=== PATIENT | female | born 1990 | race American Indian/Alaskan Native ===

== ENCOUNTER 2017-03-22 20:52 | Emergency (ER) | payer SELFPAY ==
[2017-03-22] MEDS ORDERED: TORADOL ONE (21:10)
[2017-03-22] MEDS ORDERED: ZOFRAN ONE (21:14)
[2017-03-22] MEDS ORDERED: TORADOL IV ONE (21:22)
[2017-03-22] MEDS ORDERED: ZOFRAN IV ONE (21:22)
[2017-03-22 22:48] LABS: Mean Corpuscular HGB Conc 30 % (30-34); Platelet Count 424 K/mm3 (140-440); Red Blood Count 5.01 M/mm3 (3.65-5.03); Red Cell Distribution Width 19.2 % (13.2-15.2)
[2017-03-22 22:50] LABS: Hemoglobin 9.2 gm/dl (10.1-14.3); Mean Corpuscular Hemoglobin 18 pg (28-32); Mean Corpuscular Volume 62 fl (79-97); White Blood Count 22.4 K/mm3 (4.5-11.0)
[2017-03-22 23:11] LABS: Alanine Aminotransferase 6 units/L (7-56); Albumin 4.4 g/dL (3.9-5); Alkaline Phosphatase 98 units/L (35-129); Anion Gap 23 mmol/L; BUN/Creatinine Ratio 9; Blood Urea Nitrogen 6 mg/dL (7-17); Calcium 9.2 mg/dL (8.4-10.2); Carbon Dioxide 20 mmol/L (22-30); Chloride 98.4 mmol/L (98-107); Glucose 75 mg/dL (65-100); Lipase 36 units/L (13-60); Potassium 3.9 mmol/L (3.6-5.0); Sodium 137 mmol/L (137-145); Total Protein 8.7 g/dL (6.3-8.2)
[2017-03-22 23:23] LABS: Basophils % (Manual) 0 % (0.0-1.8); Blastocytes % (Manual) 0 %; Eosinophils % (Manual) 0 % (0.0-4.3)
[2017-03-22 23:26] LABS: Anisocytosis 1+
[2017-03-22 23:27] LABS: Diff Status Complete; Hypochromasia 2+; Microcytosis 2+; Platelet Estimate Consistent w Auto
--- NOTE | 2017-03-22 23:45 | Cat Scan Report ---
FINAL REPORT PROCEDURE: CT ABDOMEN PELVIS WO CON TECHNIQUE: Computerized axial tomography of the abdomen and pelvis was performed without intravenous contrast. This study is performed without intravascular contrast material and its sensitivity for abdominal and pelvic pathology, including neoplasms, inflammation, abscess, free fluid, thrombosis, arterial dissection and infarction, is reduced compared with a contrast enhanced study. HISTORY: flank pain, rlq pain COMPARISON: No prior studies are available for comparison. FINDINGS: Visualized lower thorax: No significant abnormality. Liver: Normal size and attenuation. Spleen: Normal size and attenuation. Gallbladder and biliary system: Normal. Pancreas: Normal. Adrenals: Normal. Kidneys: There are tiny stones in the right kidney. There are no ureteral stones. There is no hydronephrosis.. GI tract: There is no bowel obstruction, colitis or enteritis. The appendix is normal.. Lymph nodes and mesentery: Normal. Vasculature: Normal. Bladder: Normal. Reproductive organs: Uterus is unremarkable. There is an ill-defined soft tissue density in the left adnexal region measuring approximately 6.4 x 4.1 centimeters. This could be unopacified small bowel. Hemorrhagic ovarian cyst or mass not excluded.. Peritoneum: There is moderate free pelvic fluid.. Musculoskeletal structures: No significant abnormality. Other: None. IMPRESSION: There are tiny stones in the right kidney. There are no ureteral stones. There is no hydronephrosis.. There is no bowel obstruction, colitis or enteritis. The appendix is normal.. Uterus is unremarkable. There is an ill-defined soft tissue density in the left adnexal region measuring approximately 6.4 x 4.1 centimeters. This could be unopacified small bowel. Hemorrhagic ovarian cyst or mass not excluded.. Pelvic ultrasound may be helpful. There is moderate free pelvic fluid.. There is no pneumoperitoneum. .
[2017-03-23 01:46] VITALS: BP 114/75
== END 2017-03-23 04:30 | disposition left against medical advice (07) ==
LOC: ED 20:52
DX: R10.9 Unspecified abdominal pain (principal); Z53.21 Procedure and treatment not carried out due to patient leaving prior to being seen by health care provider
CPT/HCPCS: 36415; 74176; 80053; 83690; 84703; 85007; 85025; J1885; J2405

== ENCOUNTER 2018-05-24 09:11 | Emergency (ER) | payer MEDICAID ==
[2018-05-24] MEDS ORDERED: DILAUDID ONE (09:44)
[2018-05-24] MEDS ORDERED: NACL 0.9% 1000 ML 1,000 ML ONE (09:44)
[2018-05-24] MEDS ORDERED: DILAUDID IV ONE ×2 (09:48→10:52)
[2018-05-24] MEDS ORDERED: NACL 0.9% 1000 ML 1,000 ML IV ONE (09:48)
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
[2018-05-24 10:11] LABS: Hematocrit 30.8 % (30.3-42.9); Hemoglobin 9.4 gm/dl (10.1-14.3); Mean Corpuscular HGB Conc 31 % (30-34); Platelet Count 458 K/mm3 (140-440); Red Blood Count 5.03 M/mm3 (3.65-5.03)
[2018-05-24 10:15] LABS: Mean Corpuscular Volume 61 fl (79-97); Red Cell Distribution Width 20.1 % (13.2-15.2)
[2018-05-24 10:23] LABS: Alanine Aminotransferase 7 units/L (7-56); Albumin 4.7 g/dL (3.9-5); BUN/Creatinine Ratio 9; Blood Urea Nitrogen 6 mg/dL (7-17); Calcium 9.6 mg/dL (8.4-10.2); Hemolysis Index 12
[2018-05-24 10:52] LABS: Total Cells Counted 100
[2018-05-24 10:56] LABS: Anisocytosis 2+; Poikilocytosis 2+; Target Cells 1+
[2018-05-24 10:57] LABS: Hypochromasia 2+; Ovalocytes Few; Tear Drop Cells 1+
[2018-05-24 10:58] LABS: Platelet Estimate Consistent w Auto
[2018-05-24] MEDS ORDERED: BOOSTRIX IM ONE (11:33)
[2018-05-24] MEDS ORDERED: THERMAZENE 50 GRAM TP ONE ×3 (12:59→13:30)
[2018-05-24 13:22] VITALS: BP 124/72
== END 2018-05-24 13:22 | disposition home or self-care (01) ==
LOC: ED 09:11
DX: T21.14XA Burn of first degree of lower back, initial encounter (principal); J45.909 Unspecified asthma, uncomplicated; F17.200 Nicotine dependence, unspecified, uncomplicated; F12.90 Cannabis use, unspecified, uncomplicated; Z88.0 Allergy status to penicillin; Z91.018 Allergy to other foods; X08.8XXA Exposure to other specified smoke, fire and flames, initial encounter; Y93.89 Activity, other specified; Y92.099 Unspecified place in other non-institutional residence as the place of occurrence of the external cause; Y99.8 Other external cause status
CPT/HCPCS: 16020; 36415; 80053; 85007; 85025; 90471; 90715; 96374; 96376; 99284; J1170; J7030; 96361

== ENCOUNTER 2020-06-25 09:58 | Emergency (ER) | payer MEDICAID ==
--- NOTE | 2020-06-25 10:10 | Event Note ---
ED Screening Note Date of service: 06/25/20 Time: 10:09 ED Screening Note: 29-year-old -[place] female presents to the emergency room complaining of bilateral leg pain 8 out of 10. Patient reports that she has a history of sickle cell disease. This initial assessment/diagnostic orders/clinical plan/treatment(s) is/are subject to change based on patients health status, clinical progression and re- assessment by fellow clinical providers in the ED. Further treatment and workup at subsequent clinical providers discretion. Patient/guardian urged not to elope from the ED as their condition may be serious if not clinically assessed and managed. Initial orders include:
[2020-06-25 10:29] LABS: Basophils % (Auto) 0.4 % (0.0-1.8); Eosinophils # (Auto) 0.2 K/mm3 (0.0-0.4); Hematocrit 34.9 % (30.3-42.9); Hemoglobin 10.7 gm/dl (10.1-14.3); Lymphocytes # (Auto) 1.5 K/mm3 (1.2-5.4); Lymphocytes % (Auto) 29.8 % (13.4-35.0); Mean Corpuscular HGB Conc 31 % (30-34); Mean Corpuscular Volume 70 fl (79-97); Monocytes # (Auto) 0.3 K/mm3 (0.0-0.8); Monocytes % (Auto) 5.2 % (0.0-7.3); Platelet Count 365 K/mm3 (140-440); Red Blood Count 4.96 M/mm3 (3.65-5.03); Red Cell Distribution Width 19.8 % (13.2-15.2)
[2020-06-25 10:54] LABS: Alanine Aminotransferase 8 units/L (7-56); Albumin 3.9 g/dL (3.9-5); Blood Urea Nitrogen 5 mg/dL (7-17); Calcium 8.8 mg/dL (8.4-10.2); Hemolysis Index 9
[2020-06-25 11:07] LABS: BUN/Creatinine Ratio 8
--- NOTE | 2020-06-25 13:25 | Emergency Department Report ---
ED General Adult HPI - General Chief complaint: Sickle Cell Crisis Stated complaint: SICKLE CELL Time Seen by Provider: 06/25/20 13:24 Source: patient Mode of arrival: Ambulatory Limitations: No Limitations - History of Present Illness Initial comments: 29-year-old female with initial medical screening note stating that she is having a sickle cell crisis with a history of sickle cell disease. However the patient has been to this facility several times over the last less than 10 years. She had a normal vaginal delivery in 2016 with no mention of sickle cell disease: Date of discharge: 05/20/15 Attending physician: MANISH RANGEL Primary care physician: MANISH RANGEL Hospitalization Reason for admission: active labor, rupture of membranes Delivery: Episiotomy: none Laceration: none Other procedures: none complications: none Discharge diagnosis: IUP at term delivered [place] baby: male Pertinent studies: H&H-11.2/34.7 Hospital course: unremarkable Condition at discharge: Good Disposition: DISCHARGED TO HOME OR SELFCARE She has also been here for several pain complaints to include rule out renal colic with a negative CT for hydronephrosis as well as she thinks. A sickle cell screen has been ordered. However, review of her prior CBC profiles were negative for sickle cell. He does have a chronic anemia. Patient states that she has bilateral pain involving both her legs which is diffuse. She states that it is an ache which is exacerbated by cold weather. S he states that she has had this recurrently. She tells me that she is seeing a registered associate in [place] but for a long time. She does have a history of chronic anemia related to heavy periods. She denies recent fever or chills. I had the lab perform a sickle cell screen and QC. There were definitively negative. I informed the patient that per our results she does not have sickle cell disease. She did not appear to be terribly surprised that this fact. She asked for something for pain before leaving the emergency department. - Related Data Previous Rx's Medication Instructions Recorded Last Taken Type Nitrofurantoin Macrocrysta(Nf) 50 mg PO QDAY #60 capsule 12/22/14 Unknown Rx [Macrodantin CAP] Pnv,Calcium 72/Iron/Folic Acid 1 each PO DAILY #30 tablet 12/22/14 05/19/15 Rx [ Plus Tablet] Potassium Chloride [K-Sunitha] 40 meq PO DAILY #30 ml 12/22/14 05/19/15 Rx Sulfamethoxazole/Trimethoprim 1 each PO BID #20 tablet 12/22/14 Unknown Rx [Bactrim DS TAB] Nitrofurantoin Macrocrysta(Nf) 50 mg PO DAILY #60 capsule 01/02/15 Unknown Rx [Macrodantin CAP] HYDROcodone/APAP 7.5-325 [[place] 1 each PO Q6HR PRN #12 tablet 05/24/18 Unknown Rx 7.5/325] Silver Sulfadiazine [Silvadene] 400 gm TP BID #1 cream..g. 05/24/18 Unknown Rx Naproxen [Naprosyn] 500 mg PO Q12H PRN #14 tablet 06/25/20 Unknown Rx Allergies Allergy/AdvReac Type Severity Reaction Status Date / Time coconut oil Allergy Rash Verified 02/09/16 03:51 Penicillins Allergy Swelling Verified 02/09/16 03:51 ED Review of Systems ROS: Stated complaint: SICKLE CELL Other details as noted in HPI Constitutional: denies: chills, fever Eyes: denies: eye pain, eye discharge, vision change ENT: denies: ear pain, throat pain Respiratory: denies: cough, shortness of breath, wheezing Cardiovascular: denies: chest pain, palpitations Endocrine: no symptoms reported Gastrointestinal: denies: abdominal pain, nausea, diarrhea Genitourinary: abnormal menses (Chronically heavy periods). denies: urgency, dysuria Musculoskeletal: as per HPI, other (Diffuse nonlocalized leg pain). denies: back pain, joint swelling, arthralgia Skin: denies: rash, lesions Neurological: denies: headache, weakness, paresthesias Psychiatric: denies: anxiety, depression Hematological/Lymphatic: denies: easy bleeding, easy bruising ED Past Medical Hx - Past Medical History Previous Medical History?: Yes Hx Hypertension: No Hx Congestive Heart Failure: No Hx Diabetes: No Hx Deep Vein Thrombosis: No Hx Renal Disease: No Hx Sickle Cell Disease: Yes (Trait) Hx Seizures: No Hx Asthma: Yes (last attack 2013) Hx COPD: No Hx HIV: No - Surgical History Past Surgical History?: No - Social History Smoking Status: Current Every Day Smoker Substance Use Type: None - Medications Home Medications: Home Medications Medication Instructions Recorded Confirmed Last Taken Type Nitrofurantoin Macrocrysta(Nf) 50 mg PO QDAY #60 capsule 12/22/14 05/19/15 Unknown Rx [Macrodantin CAP] Pnv,Calcium 72/Iron/Folic Acid 1 each PO DAILY #30 tablet 12/22/14 05/19/15 05/19/15 Rx [ Plus Tablet] Potassium Chloride [K-Sunitha] 40 meq PO DAILY #30 ml 12/22/14 05/19/15 05/19/15 Rx Sulfamethoxazole/Trimethoprim 1 each PO BID #20 tablet 12/22/14 05/19/15 Unknown Rx [Bactrim DS TAB] Nitrofurantoin Macrocrysta(Nf) 50 mg PO DAILY #60 capsule 01/02/15 05/19/15 Unknown Rx [Macrodantin CAP] HYDROcodone/APAP 7.5-325 [[place] 1 each PO Q6HR PRN #12 tablet 05/24/18 Unknown Rx 7.5/325] Silver Sulfadiazine [Silvadene] 400 gm TP BID #1 cream..g. 05/24/18 Unknown Rx Naproxen [Naprosyn] 500 mg PO Q12H PRN #14 tablet 06/25/20 Unknown Rx ED Physical Exam - General Limitations: No Limitations General appearance: alert, in no apparent distress - Head Head exam: Present: atraumatic, normocephalic - Eye Eye exam: Present: normal appearance. Absent: scleral icterus - ENT ENT exam: Present: mucous membranes moist - Neck Neck exam: Present: normal inspection - Respiratory Respiratory exam: Present: normal lung sounds bilaterally. Absent: respiratory distress - Cardiovascular Cardiovascular Exam: Present: regular rate, normal rhythm. Absent: systolic murmur, diastolic murmur, rubs, gallop - GI/Abdominal GI/Abdominal exam: Present: soft, normal bowel sounds. Absent: distended, tenderness, guarding, rebound - Extremities Exam Extremities exam: Present: normal inspection, full ROM, tenderness (States it hurts all over, nonlocalizing tenderness), normal capillary refill, joint swelling. Absent: pedal edema, calf tenderness - Back Exam Back exam: Present: normal inspection - Neurological Exam Neurological exam: Present: alert, oriented X3, CN II-XII intact. Absent: motor sensory deficit - Psychiatric Psychiatric exam: Present: normal affect, normal mood - Skin Skin exam: Present: warm, dry, intact, normal color. Absent: rash ED Course Vital Signs 06/25/20 10:09 Temperature 98.3 F Pulse Rate 90 Respiratory 16 Rate Blood Pressure 173/95 [Left] O2 Sat by Pulse 100 Oximetry - Reevaluation(s) Reevaluation #1: I think we must conclude that the patient has drug-seeking behavior. Sickle cell screening is negative. She has been to this facility since 2013 without a history of sickle cell. She has no local registered associate. She does have a stable hemoglobin. She will be referred to the local primary care clinic. 06/25/20 14:25 ED Medical Decision Making - Lab Data Result diagrams: 06/25/20 10:16 06/25/20 10:16 Laboratory Results - last 24 hr 06/25/20 06/25/20 10:16 10:16 WBC 5.1 RBC 4.96 Hgb 10.7 Hct 34.9 MCV 70 L MCH 22 L MCHC 31 RDW 19.8 H Plt Count 365 Lymph % (Auto) 29.8 [place] % (Auto) 5.2 Eos % (Auto) 3.0 Baso % (Auto) 0.4 Lymph # (Auto) 1.5 [place] # (Auto) 0.3 Eos # (Auto) 0.2 Baso # (Auto) 0.0 Seg Neutrophils % 61.6 Seg Neutrophils # 3.1 Percent Retic 0.88 Sodium 136 L Potassium 3.9 Chloride 105.6 Carbon Dioxide 24 Anion Gap 10 BUN 5 L Creatinine 0.6 Estimated GFR > 60 BUN/Creatinine Ratio 8 Glucose 79 Calcium 8.8 Total Bilirubin 0.50 AST 14 ALT 8 Alkaline Phosphatase 109 Total Protein 7.9 Albumin 3.9 Albumin/Globulin Ratio 1.0 Laboratory Results - last 24 hr 06/25/20 06/25/20 10:16 10:16 WBC 5.1 RBC 4.96 Hgb 10.7 Hct 34.9 MCV 70 L MCH 22 L MCHC 31 RDW 19.8 H Plt Count 365 Lymph % (Auto) 29.8 [place] % (Auto) 5.2 Eos % (Auto) 3.0 Baso % (Auto) 0.4 Lymph # (Auto) 1.5 [place] # (Auto) 0.3 Eos # (Auto) 0.2 Baso # (Auto) 0.0 Seg Neutrophils % 61.6 Seg Neutrophils # 3.1 Percent Retic 0.88 Sodium 136 L Potassium 3.9 Chloride 105.6 Carbon Dioxide 24 Anion Gap 10 BUN 5 L Creatinine 0.6 Estimated GFR > 60 BUN/Creatinine Ratio 8 Glucose 79 Calcium 8.8 Total Bilirubin 0.50 AST 14 ALT 8 Alkaline Phosphatase 109 Total Protein 7.9 Albumin 3.9 Albumin/Globulin Ratio 1.0 Sickle screen was negative Critical care attestation.: If time is entered above; I have spent that time in minutes in the direct care of this critically ill patient, excluding procedure time. 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 I would recommend an iron rich diet and [id number] iron supplement. Rx as needed for leg pain. Prescriptions: Naproxen [Naprosyn] 500 mg PO Q12H PRN #14 tablet PRN Reason: Pain, Moderate (4-6) Referrals: [facility] [Other] - 3-5 Days [facility] [Provider Group] - 3-5 Days Time of Disposition: 14:30
[2020-06-25] MEDS ORDERED: NAPROXEN 375 MG TAB PO ONE (14:31)
[2020-06-25] MEDS ORDERED: traMADol 50 MG TAB PO ONE (14:39)
[2020-06-25 14:51] VITALS: BP 143/101
== END 2020-06-25 14:50 | disposition home or self-care (01) ==
LOC: ED 09:58
DX: D64.9 Anemia, unspecified (principal); M79.604 Pain in right leg; M79.605 Pain in left leg; Z76.5 Malingerer [conscious simulation]; J45.909 Unspecified asthma, uncomplicated; F17.200 Nicotine dependence, unspecified, uncomplicated; Z79.899 Other long term (current) drug therapy; Z88.0 Allergy status to penicillin; Z88.8 Allergy status to other drugs, medicaments and biological substances
CPT/HCPCS: 36415; 80053; 85025; 85045; 85660

== ENCOUNTER 2020-08-14 10:14 | Observation (INO) | payer MEDICAID ==
[2020-08-14] MEDS ORDERED: DEXTROSE 50% IN WATER (25GM) 50 ML SYRINGE IV ONE ×2 (10:46→10:49)
--- NOTE | 2020-08-14 11:11 | Emergency Department Report ---
ED General Adult HPI - General Chief complaint: Hypoglycemia Stated complaint: GEN WEAKNESS HYPERTENSIVE Time Seen by Provider: 08/14/20 10:47 Source: EMS Mode of arrival: Stretcher Limitations: No Limitations - History of Present Illness Initial comments: This is a 38-year-old female that arrived via EMS. She was found to have a blood sugar in the 40s in the field. She was given D10 infusion 125 cc. She arrives with a blood glucose in the mid 50s. Apparently she was feeling very weak and EMS was summoned. She tells me that yesterday she threw up perhaps 4 times. The first 3 times was the food that she ate, she states. There is no signs of GI bleeding. She has some persistent nausea but no diarrhea. She denies respiratory symptoms, cough, fevers, shortness of breath. She has had no change in her urine output or any symptoms. Other than the generalized weakness she has no specific complaint. This is a patient that I saw here in June 2019 with a factitious history of sickle cell disease: She has also been here for several pain complaints to include rule out renal colic with a negative CT for hydronephrosis as well as she thinks. A sickle cell screen has been ordered. However, review of her prior CBC profiles were negative for sickle cell. He does have a chronic anemia. Patient states that she has bilateral pain involving both her legs which is diffuse. She states that it is an ache which is exacerbated by cold weather. She states that she has had this recurrently. 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 She does have a history of chronic anemia related to heavy periods. She denies recent fever or chills. I had the lab perform a sickle cell screen and QC. There were definitively negative. I informed the patient that per our results she does not have sickle cell disease. She did not appear to be terribly surprised that this fact. She asked for something for pain before leaving the emergency department. Patient denies recent fever or exposure to people with Covid. Patient states that she has not seen a physician for quite some time. She states that her previously prescribed medications were Zoloft and trazodone. She has not been taking any such medicine for quite some time. She does have a history of hypertension as well but is noncompliant with medication. -: hour(s) Severity scale (0 -10): 0 Associated Symptoms: denies other symptoms, weakness - Related Data Previous Rx's Medication Instructions Recorded Last Taken Type Nitrofurantoin Macrocrysta(Nf) 50 mg PO QDAY #60 capsule 12/22/14 Unknown Rx [Macrodantin CAP] Pnv,Calcium 72/Iron/Folic Acid 1 each PO DAILY #30 tablet 12/22/14 05/19/15 Rx [ Plus Tablet] Potassium Chloride [K-Sunitha] 40 meq PO DAILY #30 ml 12/22/14 05/19/15 Rx Sulfamethoxazole/Trimethoprim 1 each PO BID #20 tablet 12/22/14 Unknown Rx [Bactrim DS TAB] Nitrofurantoin Macrocrysta(Nf) 50 mg PO DAILY #60 capsule 01/02/15 Unknown Rx [Macrodantin CAP] HYDROcodone/APAP 7.5-325 [[place] 1 each PO Q6HR PRN #12 tablet 05/24/18 Unknown Rx 7.5/325] Silver Sulfadiazine [Silvadene] 400 gm TP BID #1 cream..g. 05/24/18 Unknown Rx Naproxen [Naprosyn] 500 mg PO Q12H PRN #14 tablet 06/25/20 Unknown Rx Allergies Allergy/AdvReac Type Severity Reaction Status Date / Time coconut oil Allergy Rash Verified 02/09/16 03:51 Penicillins Allergy Swelling Verified 02/09/16 03:51 ED Review of Systems ROS: Stated complaint: GEN WEAKNESS HYPERTENSIVE Other details as noted in HPI Constitutional: weakness. denies: chills, fever Eyes: denies: eye pain, vision change ENT: denies: ear pain, throat pain Respiratory: denies: cough, shortness of breath Cardiovascular: denies: chest pain, palpitations Endocrine: no symptoms reported Gastrointestinal: nausea, vomiting. denies: abdominal pain, diarrhea Genitourinary: denies: urgency, dysuria, discharge Musculoskeletal: denies: back pain, arthralgia Skin: denies: rash, lesions Neurological: denies: headache, weakness, paresthesias Psychiatric: denies: anxiety, depression Hematological/Lymphatic: denies: easy bleeding, easy bruising ED Past Medical Hx - Past Medical History Previous Medical History?: Yes Hx Hypertension: Yes Hx Congestive Heart Failure: No Hx Diabetes: No Hx Deep Vein Thrombosis: No Hx Renal Disease: No Hx Sickle Cell Disease: (Trait) Hx Seizures: No Hx Asthma: Yes (last attack 2013) Hx COPD: No Hx HIV: No - Social History Smoking Status: Current Every Day Smoker Substance Use Type: None - Medications Home Medications: Home Medications Medication Instructions Recorded Confirmed Last Taken Type Nitrofurantoin Macrocrysta(Nf) 50 mg PO QDAY #60 capsule 12/22/14 05/19/15 Unknown Rx [Macrodantin CAP] Pnv,Calcium 72/Iron/Folic Acid 1 each PO DAILY #30 tablet 12/22/14 05/19/15 05/19/15 Rx [ Plus Tablet] Potassium Chloride [K-Sunitha] 40 meq PO DAILY #30 ml 12/22/14 05/19/15 05/19/15 Rx Sulfamethoxazole/Trimethoprim 1 each PO BID #20 tablet 12/22/14 05/19/15 Unknown Rx [Bactrim DS TAB] Nitrofurantoin Macrocrysta(Nf) 50 mg PO DAILY #60 capsule 01/02/15 05/19/15 Unknown Rx [Macrodantin CAP] HYDROcodone/APAP 7.5-325 [[place] 1 each PO Q6HR PRN #12 tablet 05/24/18 Unknown Rx 7.5/325] Silver Sulfadiazine [Silvadene] 400 gm TP BID #1 cream..g. 05/24/18 Unknown Rx Naproxen [Naprosyn] 500 mg PO Q12H PRN #14 tablet 06/25/20 Unknown Rx ED Physical Exam - General Limitations: No Limitations General appearance: alert, in no apparent distress, other (Very asthenic) - Head Head exam: Present: atraumatic, normocephalic - Eye Eye exam: Present: normal appearance, PERRL, EOMI - ENT ENT exam: Present: mucous membranes moist - Neck Neck exam: Present: normal inspection. Absent: tenderness, meningismus - Respiratory Respiratory exam: Present: normal lung sounds bilaterally. Absent: respiratory distress - Cardiovascular Cardiovascular Exam: Present: regular rate, normal rhythm. Absent: systolic murmur, diastolic murmur, rubs, gallop - GI/Abdominal GI/Abdominal exam: Present: soft, normal bowel sounds. Absent: distended, tenderness, guarding, rebound - Extremities Exam Extremities exam: Present: normal inspection - Back Exam Back exam: Present: normal inspection - Neurological Exam Neurological exam: Present: alert, oriented X3, CN II-XII intact. Absent: motor sensory deficit - Psychiatric Psychiatric exam: Present: normal mood, flat affect - Skin Skin exam: Present: warm, dry, intact, normal color. Absent: rash ED Course Vital Signs 08/14/20 08/14/20 08/14/20 10:42 10:43 12:30 Temperature 97.9 F Pulse Rate 84 95 H Respiratory 17 17 21 Rate Blood Pressure 147/104 152/102 [Right] O2 Sat by Pulse 100 100 100 Oximetry - Reevaluation(s) Reevaluation #1: Patient was given D10 in the field. Her first glucose here was 20. She ate and still had a relatively low glucose. She vomited x1. I placed her on D5 half- normal saline. With the persistent hypoglycemia and vomiting, I am going to refer to the hospitalist service. 08/14/20 12:33 Reevaluation #3: Discussed with Dr. Kinsey. He will admit. 08/14/20 13:06 ED Medical Decision Making - Lab Data Result diagrams: 08/14/20 11:16 08/14/20 11:16 Critical care attestation.: If time is entered above; I have spent that time in minutes in the direct care of this critically ill patient, excluding procedure time. ED Disposition Clinical Impression: Hypoglycemia, Hyponatremia, Uncontrolled hypertension, Polysubstance abuse, BMI 22.0-22.9, adult Vomiting Qualifiers: Vomiting type: unspecified Vomiting Intractability: intractable Nausea presence: with nausea Qualified Code(s): R11.2 - Nausea with vomiting, unspecified Anemia Qualifiers: Anemia type: unspecified type Qualified Code(s): D64.9 - Anemia, unspecified Disposition: OP ADMIT IP TO THIS HOSP Is pt being admited?: No Does the pt Need Aspirin: No Condition: Stable Instructions: Hypertension (ED) Referrals: PRIMARY CARE, [Primary Care Provider] - 3-5 Days Time of Disposition: 13:06
[2020-08-14] MEDS ORDERED: ONDANSETRON 4 MG ODT TAB PO ONE (11:12)
[2020-08-14 11:28] LABS: Benzodiazepines Screen,Urine Negative; Cannabinoid Screen,Urine Negative; Methadone Screen,Urine Negative; Opiate Screen,Urine Negative
[2020-08-14 11:36] LABS: Basophils # (Auto) 0.1 K/mm3 (0.0-0.1); Basophils % (Auto) 0.8 % (0.0-1.8); Eosinophils # (Auto) 0.1 K/mm3 (0.0-0.4); Eosinophils % (Auto) 1.1 % (0.0-4.3); Hematocrit 34.8 % (30.3-42.9); Hemoglobin 10.8 gm/dl (10.1-14.3); Lymphocytes # (Auto) 1.7 K/mm3 (1.2-5.4); Lymphocytes % (Auto) 25.2 % (13.4-35.0); Mean Corpuscular HGB Conc 31 % (30-34); Monocytes # (Auto) 0.5 K/mm3 (0.0-0.8); Monocytes % (Auto) 7.3 % (0.0-7.3); Platelet Count 394 K/mm3 (140-440); Red Blood Count 5.15 M/mm3 (3.65-5.03)
[2020-08-14 11:45] LABS: Amphetamine Screen,Urine PRESUMPTIVE POSITIVE; Cocaine Screen,Urine PRESUMPTIVE POSITIVE
[2020-08-14 11:47] LABS: Bacteria,Urine 1+ /HPF (Negative); Bilirubin,Urine NEG (Negative); Blood,Urine NEG (Negative); Color,Urine Straw (Yellow); Mucus,Urine FEW /HPF; Protein,Urine <15 mg/dL mg/dL (Negative); Urobilinogen,Urine < 2.0 mg/dL (<2.0); WBC,Urine < 1.0 /HPF (0.0-6.0)
[2020-08-14 11:48] LABS: Mean Corpuscular Volume 68 fl (79-97); Red Cell Distribution Width 20.4 % (13.2-15.2)
[2020-08-14 11:52] LABS: INR 1.01 (0.87-1.13)
[2020-08-14 11:53] LABS: Partial Thromboplastin Time 31.7 Sec. (24.2-36.6)
[2020-08-14 11:54] LABS: HCG Qualitative,Urine Negative (Negative)
[2020-08-14 11:59] LABS: Alanine Aminotransferase 9 units/L (7-56); Albumin 4.2 g/dL (3.9-5); Blood Urea Nitrogen 6 mg/dL (7-17); Calcium 9.3 mg/dL (8.4-10.2); Hemolysis Index 3
[2020-08-14 12:06] LABS: BUN/Creatinine Ratio 9
[2020-08-14 12:09] LABS: Free T4 (Free Thyroxine) 1.29 ng/dL (0.76-1.46)
[2020-08-14 12:10] LABS: Bilirubin,Direct < 0.2 mg/dL (0-0.2)
[2020-08-14] MEDS ORDERED: ONDANSETRON 4 MG/2 ML INJ IV ONE (12:18)
[2020-08-14] MEDS ORDERED: D5W/0.9% NACL 1,000 ML IV SCH (13:00)
[2020-08-14] MEDS ORDERED: D5W/0.45% NACL 1,000 ML IV SCH (13:00)
--- NOTE | 2020-08-14 13:13 | History and Physical Report ---
History of Present Illness Chief complaint: I feel sick History of present illness: 38 YO Female with HTN, Asthma, Nicotine Dependence, PSA, SCD Trait presents to ED for evaluation. Pt reports "I feel sick". Patient is lethargic the time of my evaluation and is unable to provide detailed history. Patient only provides minimal history. Additional history taken from EMS staff as well as ED staff. As per staff the patient reported "feeling sick". EMS was notified and upon arrival the patient was found to be in distress and subsequently transported to [facility] for further care and evaluation of the aforementioned symptoms. The patient was seen and evaluated in the emergency department. All lab and imaging studies reviewed. The patient was found to have hypoglycemia, metabolic encephalopathy. Patient placed in observation status and admitted to medical floor and initiated on D10 drip. No reports of fever, chills, chest pain, palpitation, productive cough, skin rash, recent ill contacts, or known exposure to COVID-19. No prior admission for review. All medication listed at time of admission has been reconciled. Past History Past Medical History: hypertension, other (See HPI) Past Surgical History: No surgical history, Other (Reviewed) Social history: single, smoking Family history: diabetes, hypertension Medications and Allergies Allergies Allergy/AdvReac Type Severity Reaction Status Date / Time coconut oil Allergy Rash Verified 02/09/16 03:51 Penicillins Allergy Swelling Verified 02/09/16 03:51 Home Medications Medication Instructions Recorded Confirmed Last Taken Type Nitrofurantoin Macrocrysta(Nf) 50 mg PO QDAY #60 capsule 12/22/14 05/19/15 Unknown Rx [Macrodantin CAP] Pnv,Calcium 72/Iron/Folic Acid 1 each PO DAILY #30 tablet 12/22/14 05/19/15 05/19/15 Rx [ Plus Tablet] Potassium Chloride [K-Sunitha] 40 meq PO DAILY #30 ml 12/22/14 05/19/15 05/19/15 Rx Sulfamethoxazole/Trimethoprim 1 each PO BID #20 tablet 12/22/14 05/19/15 Unknown Rx [Bactrim DS TAB] Nitrofurantoin Macrocrysta(Nf) 50 mg PO DAILY #60 capsule 01/02/15 05/19/15 Unknown Rx [Macrodantin CAP] HYDROcodone/APAP 7.5-325 [[place] 1 each PO Q6HR PRN #12 tablet 05/24/18 Unknown Rx 7.5/325] Silver Sulfadiazine [Silvadene] 400 gm TP BID #1 cream..g. 05/24/18 Unknown Rx Naproxen [Naprosyn] 500 mg PO Q12H PRN #14 tablet 06/25/20 Unknown Rx Active Meds: Active Medications Dextrose/Sodium Chloride (D5ns) 1,000 mls @ 150 mls/hr IV DIRECT SAIMA Review of Systems ROS unobtainable: due to mental status Exam - Constitutional Vitals: Temp Pulse Resp BP Pulse Ox 97.9 F 107 H 22 144/95 100 08/14/20 10:42 08/14/20 12:46 08/14/20 12:46 08/14/20 12:46 08/14/20 12:46 General appearance: Present: mild distress - EENT Eyes: Present: PERRL ENT: hearing intact, clear oral mucosa - Neck Neck: Present: supple, normal ROM - Respiratory Respiratory effort: normal Respiratory: bilateral: CTA - Cardiovascular Heart Sounds: Present: S1 & S2. Absent: rub, click - Extremities Extremities: pulses symmetrical, No edema Peripheral Pulses: within normal limits - Abdominal General gastrointestinal: Present: soft, non-tender, non-distended, normal bowel sounds Female genitourinary: Present: normal - Integumentary Integumentary: Present: clear, warm, dry - Musculoskeletal Musculoskeletal: gait normal, strength equal bilaterally - Psychiatric Psychiatric: appropriate mood/affect, intact judgment & insight - Neurologic Neurologic: CNII-XII intact, moves all extremities Results - Labs CBC & Chem 7: 08/14/20 11:16 08/14/20 11:16 Labs: Abnormal lab results 08/14/20 08/14/20 08/14/20 Range/Units 10:39 11:06 11:08 RBC (3.65-5.03) M/mm3 MCV (79-97) fl MCH (28-32) pg RDW (13.2-15.2) % Sodium (137-145) mmol/L BUN (7-17) mg/dL Glucose (65-100) mg/dL POC Glucose 55 L 63 L (70-105) mg/dL Total Creatine Kinase (30-135) units/L Total Protein (6.3-8.2) g/dL Ur Specific [place] 1.000 L (1.003-1.030) 08/14/20 08/14/20 Range/Units 11:16 11:16 RBC 5.15 H (3.65-5.03) M/mm3 MCV 68 L (79-97) fl MCH 21 L (28-32) pg RDW 20.4 H (13.2-15.2) % Sodium 135 L (137-145) mmol/L BUN 6 L (7-17) mg/dL Glucose 20 L* (65-100) mg/dL POC Glucose (70-105) mg/dL Total Creatine Kinase 155 H (30-135) units/L Total Protein 8.3 H (6.3-8.2) g/dL Ur Specific [place] (1.003-1.030) Assessment and Plan - Patient Problems (1) Hypoglycemia Current Visit: Yes Status: Acute Plan to address problem: Serial BMP, D10 drip, supportive care, BMP, (2) Polysubstance abuse Current Visit: Yes Status: Acute Plan to address problem: Supportive care, outpatient substance abuse follow-up counseling. (3) Metabolic encephalopathy Current Visit: Yes Status: Acute Plan to address problem: Neuro check, seizure precaution, aspiration precautions, fall precautions, supportive care. (4) DVT prophylaxis Current Visit: Yes Status: Acute Plan to address problem: SCDs bilateral lower extremities while in bed, patient is ambulatory.
[2020-08-14] MEDS ORDERED: ACETAMINOPHEN 325 MG TAB PO PRN (13:45)
[2020-08-14] MEDS ORDERED: ALBUTEROL 2.5 MG/3 ML NEBU IH PRN (13:45)
[2020-08-14] MEDS ORDERED: ONDANSETRON 4 MG/2 ML INJ IV PRN (13:45)
[2020-08-14 15:44] VITALS: BP 145/111
--- NOTE | 2020-08-15 14:43 | Electrocardiograph Report ---
[facility] Test Date: 2020-08-14 Test Time: 16:07:11 Pat Name: RICO MENEZES Department: Room: A473 1 Gender: F Orderly: SYLVESTER : 1990 Requested By: DAMASO LOGAN Order Number: [id number] Reading MD: Parker Mooney Measurements Intervals Lillian Rate: 89 P: 73 [place]: 117 QRS: 71 QRSD: 84 T: 12 QT: 379 QTc: 461 Interpretive Statements Sinus rhythm Probable left atrial enlargement No previous ECG available for comparison Electronically Signed On 08-15-2020 14:43:08 EDT by Parker Mooney
== END 2020-08-14 16:51 | disposition left against medical advice (07) ==
LOC: ED 10:14 → 4A 13:45
PROVIDERS: ADMIT Internal Medicine; ATTEND Internal Medicine
DX: G93.41 Metabolic encephalopathy (principal); E16.2 Hypoglycemia, unspecified; I10 Essential (primary) hypertension; F19.10 Other psychoactive substance abuse, uncomplicated; D64.9 Anemia, unspecified; J45.909 Unspecified asthma, uncomplicated; E87.1 Hypo-osmolality and hyponatremia; R11.2 Nausea with vomiting, unspecified; F17.200 Nicotine dependence, unspecified, uncomplicated; Z68.22 Body mass index [BMI] 22.0-22.9, adult; Z79.899 Other long term (current) drug therapy
CPT/HCPCS: 36415; 80048; 80076; 80307; 81001; 81025; 82140; 82550; 82553; 82962; 83735; 83880; 84439; 84443; 85025; 85610; 85730; 93005; 96361; 96374; 96375; 99284; G0378; J2405; J7042

== ENCOUNTER 2020-08-14 21:44 | Emergency (ER) | payer MEDICAID ==
[2020-08-15] MEDS ORDERED: ONDANSETRON 4 MG ODT TAB PO ONE (00:08)
--- NOTE | 2020-08-15 00:11 | Emergency Department Report ---
ED General Adult HPI - General Chief complaint: Hypoglycemia Stated complaint: LOW BLOOD SUGAR PUI?: No Time Seen by Provider: 08/15/20 00:01 Source: patient, RN/MD, RN notes reviewed, old records reviewed Mode of arrival: Ambulatory Limitations: No Limitations - History of Present Illness Initial comments: Patient is a 30-year-old female that presents emergency room with complaints of nausea, fatigue. Patient states she was admitted earlier today to the hospital but left AGAINST MEDICAL ADVICE. Patient states that she left because she was feeling fine. Patient states that she was admitted because she was having weakness, severe hypoglycemia requiring a sugar drip. Patient states that she was admitted around 5:00 and left a few hours later and then her symptoms returned approximately 2 hours ago. Patient states her symptoms are worsening. Patient states she has not vomited yet. Patient complains of left upper quadrant abdominal pain. Patient states her abdominal pain started 4 hours ago. Patient states the pain is worsening. Patient states the pain is a 6 out of 10. Patient states the pain is better with rest and worse with palpation and movement. Patient denies chest pain. Patient denies shortness of breath. Patient denies headache. Patient denies trauma. Patient denies loss of consciousness. Patient denies recent travel. Patient denies recent international travel. Patient denies exposure to the novel coronavirus. Patient denies sick contacts. Patient denies fever and chills. Patient denies cough. Patient denies diarrhea. Patient denies coming in contact with anybody with symptoms of the novel coronavirus. I reviewed the chart from earlier today. I reviewed the labs from earlier today. I reviewed the admission H&P from today. -: Sudden Location: abdomen Severity scale (0 -10): 6 Consistency: constant Improves with: rest Worsens with: movement Associated Symptoms: malaise. denies: confusion, chest pain, cough, diaphoresis, fever/chills, headaches, loss of appetite, rash, seizure, shortness of breath, syncope, weakness - Related Data Previous Rx's Medication Instructions Recorded Last Taken Type Nitrofurantoin Macrocrysta(Nf) 50 mg PO QDAY #60 capsule 12/22/14 Unknown Rx [Macrodantin CAP] Pnv,Calcium 72/Iron/Folic Acid 1 each PO DAILY #30 tablet 12/22/14 05/19/15 Rx [ Plus Tablet] Potassium Chloride [K-Sunitha] 40 meq PO DAILY #30 ml 12/22/14 05/19/15 Rx Nitrofurantoin Macrocrysta(Nf) 50 mg PO DAILY #60 capsule 01/02/15 Unknown Rx [Macrodantin CAP] HYDROcodone/APAP 7.5-325 [[place] 1 each PO Q6HR PRN #12 tablet 05/24/18 Unknown Rx 7.5/325] Silver Sulfadiazine [Silvadene] 400 gm TP BID #1 cream..g. 05/24/18 Unknown Rx Naproxen [Naprosyn] 500 mg PO Q12H PRN #14 tablet 06/25/20 Unknown Rx Ondansetron [Zofran Odt] 4 mg PO Q6HR PRN #15 tab.rapdis 08/15/20 Unknown Rx Sulfamethoxazole/Trimethoprim 1 each PO BID 10 Days #20 tablet 08/15/20 Unknown Rx [Bactrim DS TAB] Allergies Allergy/AdvReac Type Severity Reaction Status Date / Time coconut oil Allergy Rash Verified 02/09/16 03:51 Penicillins Allergy Swelling Verified 02/09/16 03:51 ED Review of Systems ROS: Stated complaint: LOW BLOOD SUGAR Other details as noted in HPI Constitutional: malaise. denies: chills, fever Eyes: denies: eye pain, eye discharge, vision change ENT: denies: ear pain, throat pain Respiratory: denies: cough, shortness of breath, wheezing Cardiovascular: denies: chest pain, palpitations Endocrine: no symptoms reported Gastrointestinal: as per HPI, abdominal pain, nausea. denies: vomiting, diarrhea Genitourinary: denies: urgency, dysuria, discharge Musculoskeletal: denies: back pain, joint swelling, arthralgia Skin: denies: rash, lesions Neurological: denies: headache, weakness, paresthesias Psychiatric: denies: anxiety, depression Hematological/Lymphatic: denies: easy bleeding, easy bruising ED Past Medical Hx - Past Medical History Previous Medical History?: Yes Hx Hypertension: Yes Hx Congestive Heart Failure: No Hx Diabetes: No Hx Deep Vein Thrombosis: No Hx Renal Disease: No Hx Sickle Cell Disease: (Trait) Hx Seizures: No Hx Asthma: Yes (last attack 2013) Hx COPD: No Hx HIV: No - Surgical History Past Surgical History?: No - Family History Family history: no significant - Social History Smoking Status: Current Every Day Smoker Substance Use Type: Alcohol, Cocaine, Methamphetamines - Medications Home Medications: Home Medications Medication Instructions Recorded Confirmed Last Taken Type Nitrofurantoin Macrocrysta(Nf) 50 mg PO QDAY #60 capsule 12/22/14 05/19/15 Unknown Rx [Macrodantin CAP] Pnv,Calcium 72/Iron/Folic Acid 1 each PO DAILY #30 tablet 12/22/14 05/19/15 05/19/15 Rx [ Plus Tablet] Potassium Chloride [K-Sunitha] 40 meq PO DAILY #30 ml 12/22/14 05/19/15 05/19/15 Rx Nitrofurantoin Macrocrysta(Nf) 50 mg PO DAILY #60 capsule 01/02/15 05/19/15 Unknown Rx [Macrodantin CAP] HYDROcodone/APAP 7.5-325 [[place] 1 each PO Q6HR PRN #12 tablet 05/24/18 Unknown Rx 7.5/325] Silver Sulfadiazine [Silvadene] 400 gm TP BID #1 cream..g. 05/24/18 Unknown Rx Naproxen [Naprosyn] 500 mg PO Q12H PRN #14 tablet 06/25/20 Unknown Rx Ondansetron [Zofran Odt] 4 mg PO Q6HR PRN #15 tab.rapdis 08/15/20 Unknown Rx Sulfamethoxazole/Trimethoprim 1 each PO BID 10 Days #20 tablet 08/15/20 Unknown Rx [Bactrim DS TAB] ED Physical Exam - General Limitations: No Limitations General appearance: alert, in no apparent distress - Head Head exam: Present: atraumatic, normocephalic - Eye Eye exam: Present: normal appearance - ENT ENT exam: Present: mucous membranes moist - Neck Neck exam: Present: normal inspection - Respiratory Respiratory exam: Present: normal lung sounds bilaterally. Absent: respiratory distress - Cardiovascular Cardiovascular Exam: Present: regular rate, normal rhythm. Absent: systolic murmur, diastolic murmur, rubs, gallop - GI/Abdominal GI/Abdominal exam: Present: soft, tenderness (Left upper quadrant tenderness to palpation), normal bowel sounds. Absent: distended, guarding, rebound - Extremities Exam Extremities exam: Present: normal inspection - Back Exam Back exam: Present: normal inspection - Neurological Exam Neurological exam: Present: alert, oriented X3 - Psychiatric Psychiatric exam: Present: normal affect, normal mood - Skin Skin exam: Present: warm, dry, intact, normal color. Absent: rash ED Course Vital Signs 08/14/20 08/15/20 08/15/20 22:28 00:34 00:45 Temperature 97.8 F Pulse Rate 108 H 109 H Respiratory 18 23 Rate Blood Pressure 154/104 138/73 O2 Sat by Pulse 100 100 100 Oximetry 08/15/20 08/15/20 08/15/20 01:02 01:15 01:31 Temperature Pulse Rate 97 H 103 H 91 H Respiratory 17 19 18 Rate Blood Pressure 138/73 131/86 131/86 O2 Sat by Pulse 100 100 100 Oximetry 08/15/20 08/15/20 08/15/20 02:00 02:15 02:31 Temperature Pulse Rate 100 H 102 H 99 H Respiratory 18 28 H 16 Rate Blood Pressure 131/86 153/90 153/90 O2 Sat by Pulse 100 100 100 Oximetry 08/15/20 08/15/20 08/15/20 02:45 03:01 03:15 Temperature Pulse Rate 112 H 94 H 99 H Respiratory 21 20 15 Rate Blood Pressure 153/90 153/90 129/53 O2 Sat by Pulse 100 100 100 Oximetry 08/15/20 08/15/20 08/15/20 03:31 03:45 04:32 Temperature Pulse Rate 115 H 89 Respiratory 23 18 Rate Blood Pressure 129/53 130/64 130/64 O2 Sat by Pulse 100 100 100 Oximetry 08/15/20 08/15/20 08/15/20 04:46 05:00 05:16 Temperature Pulse Rate 96 H 89 87 Respiratory 20 18 16 Rate Blood Pressure 130/64 130/64 133/85 O2 Sat by Pulse 100 100 100 Oximetry 08/15/20 08/15/20 05:30 05:46 Temperature Pulse Rate 83 86 Respiratory 17 15 Rate Blood Pressure 133/85 120/81 O2 Sat by Pulse 100 100 Oximetry - Reevaluation(s) Reevaluation #1: Patient tolerated p.o. intake. Patient states she is feeling much better. I discussed all results and clinical findings with patient. I discussed plan of care with patient. Patient agrees with plan of care. Patient is stable for discharge. Patient will be discharged home. Patient given discharge instructions. Patient voiced understanding of discharge instructions. 08/15/20 06:04 ED Medical Decision Making - Lab Data Result diagrams: 08/15/20 00:24 08/15/20 00:24 Lab Results 08/14/20 08/15/20 08/15/20 Range/Units 22:31 00:24 00:24 WBC 7.6 (4.5-11.0) K/mm3 RBC 4.64 (3.65-5.03) M/mm3 Hgb 10.3 (10.1-14.3) gm/dl Hct 31.0 (30.3-42.9) % MCV 67 L (79-97) fl MCH 22 L (28-32) pg MCHC 33 (30-34) % RDW 20.0 H (13.2-15.2) % Plt Count 374 (140-440) K/mm3 Sodium 134 L (137-145) mmol/L Potassium 3.9 (3.6-5.0) mmol/L Chloride 102.8 (98-107) mmol/L Carbon Dioxide 22 (22-30) mmol/L Anion Gap 13 mmol/L BUN 8 (7-17) mg/dL Creatinine 0.8 (0.6-1.2) mg/dL Estimated GFR > 60 ml/min BUN/Creatinine Ratio 10 % Glucose 87 (65-100) mg/dL POC Glucose 88 (70-105) mg/dL Calcium 8.9 (8.4-10.2) mg/dL Total Bilirubin 0.30 (0.1-1.2) mg/dL AST 14 (5-40) units/L ALT 8 (7-56) units/L Alkaline Phosphatase 110 (35-129) units/L Total Protein 7.8 (6.3-8.2) g/dL Albumin 4.3 (3.9-5) g/dL Albumin/Globulin Ratio 1.2 % Lipase (13-60) units/L Urine Color (Yellow) Urine Turbidity (Clear) Urine pH (5.0-7.0) Ur Specific [place] (1.003-1.030) Urine Protein (Negative) mg/dL Urine Glucose (UA) (Negative) mg/dL Urine Ketones (Negative) mg/dL Urine Blood (Negative) Urine Nitrite (Negative) Urine Bilirubin (Negative) Urine Urobilinogen (<2.0) mg/dL Ur Leukocyte Esterase (Negative) Urine WBC (Auto) (0.0-6.0) /HPF Urine RBC (Auto) (0.0-6.0) /HPF U Epithel Cells (Auto) (0-13.0) /HPF Urine Bacteria (Auto) (Negative) /HPF Urine Mucus /HPF 08/15/20 08/15/20 Range/Units 00:24 01:42 WBC (4.5-11.0) K/mm3 RBC (3.65-5.03) M/mm3 Hgb (10.1-14.3) gm/dl Hct (30.3-42.9) % MCV (79-97) fl MCH (28-32) pg MCHC (30-34) % RDW (13.2-15.2) % Plt Count (140-440) K/mm3 Sodium (137-145) mmol/L Potassium (3.6-5.0) mmol/L Chloride (98-107) mmol/L Carbon Dioxide (22-30) mmol/L Anion Gap mmol/L BUN (7-17) mg/dL Creatinine (0.6-1.2) mg/dL Estimated GFR ml/min BUN/Creatinine Ratio % Glucose (65-100) mg/dL POC Glucose (70-105) mg/dL Calcium (8.4-10.2) mg/dL Total Bilirubin (0.1-1.2) mg/dL AST (5-40) units/L ALT (7-56) units/L Alkaline Phosphatase (35-129) units/L Total Protein (6.3-8.2) g/dL Albumin (3.9-5) g/dL Albumin/Globulin Ratio % Lipase 28 (13-60) units/L Urine Color Yellow (Yellow) Urine Turbidity Cloudy (Clear) Urine pH 6.0 (5.0-7.0) Ur Specific [place] 1.012 (1.003-1.030) Urine Protein <15 mg/dl (Negative) mg/dL Urine Glucose (UA) Neg (Negative) mg/dL Urine Ketones Neg (Negative) mg/dL Urine Blood Neg (Negative) Urine Nitrite Neg (Negative) Urine Bilirubin Neg (Negative) Urine Urobilinogen < 2.0 (<2.0) mg/dL Ur Leukocyte Esterase Tr (Negative) Urine WBC (Auto) 4.0 (0.0-6.0) /HPF Urine RBC (Auto) 2.0 (0.0-6.0) /HPF U Epithel Cells (Auto) 24.0 H (0-13.0) /HPF Urine Bacteria (Auto) 1+ (Negative) /HPF Urine Mucus Few /HPF - Radiology Data Radiology results: report reviewed CT abdomen pelvis w con INDICATION: Pt complains of nausea and fatigue with slight abd pain.. TECHNIQUE: All CT scans at this location are performed using CT dose reduction for ALARA by means of automated exposure control. COMPARISON: 03/23/2017 FINDINGS: Lung bases are clear. Liver, gallbladder, spleen, pancreas, kidneys and adrenals are negative. Abdominal aorta is normal in size. No adenopathy. Pelvis Appendix is thought to be identified and unremarkable. Urinary bladder is negative. There appears to be a 1.8 cm right ovarian cyst. Uterus and ovaries are otherwise grossly negative. No appreciable free fluid. No significant bowel abnormalities. IMPRESSION: 1. 1.8 cm right ovarian cyst, of doubtful clinical significance. 2. Otherwise negative study. - Medical Decision Making Patient is a 30-year-old female that presents emergency room for fatigue and nausea and abdominal pain. Patient complained of left upper quadrant pain.. Patient was admitted to the hospital earlier but left AGAINST MEDICAL ADVICE. Patient's previous labs showed metabolic acidosis and hypoglycemia. Patient left the hospital around 5 PM return to the hospital several hours later. Patient had a blood glucose check in triage and was 88. Patient had labs done which were dramatically improved from her previous labs done on admission. Patient's earlier labs showed a metabolic acidosis which was resolved. Patient's labs were only positive for UTI. Patient had a CAT scan of the abdomen and it was negative for acute findings. Patient given fluids and Zofran. Patient tolerated p.o. intake. Patient stated she felt much better after fluids and Zofran. Patient will be given oral antibiotics. Patient stable for discharge. Patient discharged home. - Differential Diagnosis Nausea, fatigue, metabolic acidosis, dehydration Critical care attestation.: If time is entered above; I have spent that time in minutes in the direct care of this critically ill patient, excluding procedure time. ED Disposition Clinical Impression: Nausea Abdominal pain Qualifiers: Abdominal location: left upper quadrant Qualified Code(s): R10.12 - Left upper quadrant pain Fatigue Qualifiers: Fatigue type: unspecified Qualified Code(s): R53.83 - Other fatigue UTI (urinary tract infection) Qualifiers: Urinary tract infection type: acute cystitis Hematuria presence: with hematuria Qualified Code(s): N30.01 - Acute cystitis with hematuria Disposition: TO HOME OR SELFCARE Is pt being admited?: No Does the pt Need Aspirin: No Condition: Stable Instructions: Antibiotic Medicine, Adult, [id number], Urinary Tract Infection, Adult, [id number], Nausea and Vomiting, Adult Additional Instructions: Patient to follow-up with primary care in 2 to 3 days. Patient to avoid drug use. Patient to rest. Patient to increase water. Patient to avoid strenuous exercise or heavy lifting until cleared by primary care. Patient to take Tylenol or ibuprofen as needed for pain. Patient to eat a brat diet. Patient to take meds as directed. Patient to return to the ER if condition worsens, changes or new symptoms arise. Prescriptions: Sulfamethoxazole/Trimethoprim [Bactrim DS TAB] 1 each PO BID 10 Days #20 tablet Ondansetron [Zofran Odt] 4 mg PO Q6HR PRN #15 tab.rapdis PRN Reason: Nausea And Vomiting Referrals: KALPANA HIDALGO MD [Primary Care Provider] - 2-3 Days Time of Disposition: 06:09
[2020-08-15] MEDS ORDERED: SODIUM CHLORIDE 0.9% 1000 ML 1,000 ML IV ONE (00:31)
[2020-08-15] MEDS ORDERED: ONDANSETRON 4 MG/2 ML INJ IV ONE (00:31)
[2020-08-15 00:43] LABS: Hemoglobin 10.3 gm/dl (10.1-14.3); Mean Corpuscular HGB Conc 33 % (30-34); Platelet Count 374 K/mm3 (140-440); Red Blood Count 4.64 M/mm3 (3.65-5.03)
[2020-08-15 00:48] LABS: Mean Corpuscular Volume 67 fl (79-97)
[2020-08-15 01:04] LABS: Alanine Aminotransferase 8 units/L (7-56); Albumin 4.3 g/dL (3.9-5); BUN/Creatinine Ratio 10; Blood Urea Nitrogen 8 mg/dL (7-17); Calcium 8.9 mg/dL (8.4-10.2); Hemolysis Index 6
[2020-08-15 02:02] LABS: Bacteria,Urine 1+ /HPF (Negative); Bilirubin,Urine NEG (Negative); Blood,Urine NEG (Negative); Color,Urine Yellow (Yellow); Mucus,Urine FEW /HPF; Protein,Urine <15 mg/dL mg/dL (Negative); Urobilinogen,Urine < 2.0 mg/dL (<2.0)
--- NOTE | 2020-08-15 02:10 | Cat Scan Report ---
CT abdomen pelvis w con INDICATION: Pt complains of nausea and fatigue with slight abd pain.. TECHNIQUE: All CT scans at this location are performed using CT dose reduction for [place] by means of automated e xposure control. COMPARISON: 03/23/2017 FINDINGS: Lung bases are clear. Liver, gallbladder, spleen, pancreas, kidneys and adrenals are negative. Abdomi nal aorta is normal in size. No adenopathy. Pelvis Appendix is thought to be identified and unremarkable. Urinary bladder is negative. There appears to be a 1.8 cm right ovarian cyst. Uterus and ovaries are otherwise grossly negative. No appreciable nancy e fluid. No significant bowel abnormalities. IMPRESSION: 1. 1.8 cm right ovarian cyst, of doubtful clinical significance. 2. Otherwise negative study. Signer Name: Jose Nixon MD Signed: 08/15/2020 2:05 AM Workstation Name: [id number]
[2020-08-15 06:29] VITALS: BP 138/84
== END 2020-08-15 06:28 | disposition home or self-care (01) ==
LOC: ED 21:44
DX: N39.0 Urinary tract infection, site not specified (principal); R10.12 Left upper quadrant pain; R11.0 Nausea; R53.83 Other fatigue; I10 Essential (primary) hypertension; J45.909 Unspecified asthma, uncomplicated; F17.200 Nicotine dependence, unspecified, uncomplicated; Z79.899 Other long term (current) drug therapy; Z88.0 Allergy status to penicillin; Z88.8 Allergy status to other drugs, medicaments and biological substances
CPT/HCPCS: 36415; 74177; 80053; 81001; 82962; 83690; 85027; 96361; 96374; 99284; J2405; J7030; Q9967; Q0162

== ENCOUNTER 2020-08-31 21:15 | Emergency (ER) | payer MEDICAID ==
[2020-08-31 22:34] LABS: Basophils # (Auto) 0.1 K/mm3 (0.0-0.1); Basophils % (Auto) 0.6 % (0.0-1.8); Eosinophils # (Auto) 0.2 K/mm3 (0.0-0.4); Hematocrit 32.9 % (30.3-42.9); Hemoglobin 10.4 gm/dl (10.1-14.3); Lymphocytes # (Auto) 2.1 K/mm3 (1.2-5.4); Lymphocytes % (Auto) 23.9 % (13.4-35.0); Mean Corpuscular HGB Conc 32 % (30-34); Mean Corpuscular Volume 70 fl (79-97); Monocytes # (Auto) 0.4 K/mm3 (0.0-0.8); Monocytes % (Auto) 4.6 % (0.0-7.3); Platelet Count 402 K/mm3 (140-440); Red Blood Count 4.68 M/mm3 (3.65-5.03)
[2020-08-31 22:35] LABS: Alanine Aminotransferase 10 units/L (7-56); Albumin 4.2 g/dL (3.9-5); BUN/Creatinine Ratio 10; Blood Urea Nitrogen 8 mg/dL (7-17); Calcium 9.2 mg/dL (8.4-10.2); Hemolysis Index 16
[2020-08-31 22:39] LABS: Red Cell Distribution Width 20.6 % (13.2-15.2)
[2020-09-01] MEDS ORDERED: HYDROcodone/ACETAMINOPHEN 5-325 MG TAB PO ONE (02:57)
[2020-09-01] MEDS ORDERED: DEXAMETHASONE 4 MG TAB PO ONE (02:58)
--- NOTE | 2020-09-01 03:02 | Emergency Department Report ---
HPI - General Chief Complaint: Weakness Time Seen by Provider: 09/01/20 02:38 - HPI HPI: This is a 30-year-old female presents to the emergency department with complaint of a 2-day history of a frontal headache, nasal and facial congestion. The patient says "I do not know if it is the pollen or something." She does admit to a history of allergic symptoms from pollen and other environmental allergies. She denies any fever, chest pain, shortness of breath, lower extremity swelling, chest pain, vision change, slurred speech, numbness or paresthesias, or extremity weakness. She does admit to a sore throat and an occasional mixed dry and productive cough. She tried some Tylenol for her symptoms without much relief. She has a history of asthma, hypertension, sickle cell trait and anemia. No recent travel or sick contacts at home. ED Past Medical Hx - Past Medical History Hx Hypertension: Yes Hx Congestive Heart Failure: No Hx Diabetes: No Hx Deep Vein Thrombosis: No Hx Renal Disease: No Hx Sickle Cell Disease: (Trait) Hx Seizures: No Hx Asthma: Yes (last attack 2013) Hx COPD: No Hx HIV: No Additional medical history: anemia - Social History Smoking Status: Current Some Day Smoker - Medications Home Medications: Home Medications Medication Instructions Recorded Confirmed Last Taken Type Nitrofurantoin Macrocrysta(Nf) 50 mg PO QDAY #60 capsule 12/22/14 05/19/15 Unknown Rx [Macrodantin CAP] Pnv,Calcium 72/Iron/Folic Acid 1 each PO DAILY #30 tablet 12/22/14 05/19/15 05/19/15 Rx [ Plus Tablet] Potassium Chloride [K-Sunitha] 40 meq PO DAILY #30 ml 12/22/14 05/19/15 05/19/15 Rx Nitrofurantoin Macrocrysta(Nf) 50 mg PO DAILY #60 capsule 01/02/15 05/19/15 Unknown Rx [Macrodantin CAP] HYDROcodone/APAP 7.5-325 [[place] 1 each PO Q6HR PRN #12 tablet 05/24/18 Unknown Rx 7.5/325] Silver Sulfadiazine [Silvadene] 400 gm TP BID #1 cream..g. 05/24/18 Unknown Rx Naproxen [Naprosyn] 500 mg PO Q12H PRN #14 tablet 06/25/20 Unknown Rx Ondansetron [Zofran Odt] 4 mg PO Q6HR PRN #15 tab.rapdis 08/15/20 Unknown Rx Sulfamethoxazole/Trimethoprim 1 each PO BID 10 Days #20 tablet 08/15/20 Unknown Rx [Bactrim DS TAB] Fluticasone [Flonase] 1 spray NS QDAY #1 bottle 09/01/20 Unknown Rx Loratadine [Claritin] 10 mg PO QDAY #15 tablet 09/01/20 Unknown Rx Pseudoephedrine ER [Sudafed 12 Hr] 120 mg PO BID #10 tablet.er 09/01/20 Unknown Rx ED Review of Systems ROS: Stated complaint: WEAKNESS/HEADACHES Other details as noted in HPI Comment: All other systems reviewed and negative Constitutional: denies: chills, fever Eyes: denies: eye pain, vision change ENT: throat pain, congestion. denies: ear pain Respiratory: denies: cough, shortness of breath Cardiovascular: denies: chest pain, palpitations, edema Gastrointestinal: denies: abdominal pain, vomiting Genitourinary: denies: dysuria, discharge Musculoskeletal: denies: back pain, arthralgia Skin: denies: rash, lesions Neurological: headache. denies: weakness, numbness, paresthesias Physical Exam - Physical Exam Vital Signs: Vital Signs 08/31/20 21:52 Temperature 98.2 F Pulse Rate 115 H Respiratory 18 Rate Blood Pressure 143/96 O2 Sat by Pulse 99 Oximetry Physical Exam: GENERAL: The patient is well-developed well-nourished. HENT: Normocephalic. Atraumatic. Patient has moist mucous membranes. Boggy nasal mucosa with audible nasal congestion. Posterior pharynx has some benjamin lestoning appearance. No tonsillar hypertrophy, erythema or exudates. No drooling or trismus. There is reproducible tenderness to palpation along the facial sinuses. EYES: Extraocular motions are intact. Pupils equal reactive to light bilaterally. NECK: Supple. Trachea is midline. CHEST/LUNGS: Clear to auscultation. There is no respiratory distress noted. HEART/CARDIOVASCULAR: Regular. There is no tachycardia. There is no murmur. ABDOMEN: Abdomen is soft, nontender. Patient has normal bowel sounds. SKIN: Skin is warm and dry. NEURO: The patient is awake, alert, and oriented. The patient is cooperative. The patient has no focal neurologic deficits. Normal speech. Cranial nerves II through XII grossly intact. No facial asymmetry. MUSCULOSKELETAL: There is no tenderness or deformity. There is no limitation range of motion. ED Course Vital Signs 08/31/20 21:52 Temperature 98.2 F Pulse Rate 115 H Respiratory 18 Rate Blood Pressure 143/96 O2 Sat by Pulse 99 Oximetry ED Medical Decision Making - Lab Data Result diagrams: 08/31/20 22:01 08/31/20 22:01 Lab Results 08/31/20 08/31/20 Range/Units 22:01 22:01 WBC 8.7 (4.5-11.0) K/mm3 RBC 4.68 (3.65-5.03) M/mm3 Hgb 10.4 (10.1-14.3) gm/dl Hct 32.9 (30.3-42.9) % MCV 70 L (79-97) fl MCH 22 L (28-32) pg MCHC 32 (30-34) % RDW 20.6 H (13.2-15.2) % Plt Count 402 (140-440) K/mm3 Lymph % (Auto) 23.9 (13.4-35.0) % [place] % (Auto) 4.6 (0.0-7.3) % Eos % (Auto) 2.0 (0.0-4.3) % Baso % (Auto) 0.6 (0.0-1.8) % Lymph # (Auto) 2.1 (1.2-5.4) K/mm3 [place] # (Auto) 0.4 (0.0-0.8) K/mm3 Eos # (Auto) 0.2 (0.0-0.4) K/mm3 Baso # (Auto) 0.1 (0.0-0.1) K/mm3 Seg Neutrophils % 68.9 (40.0-70.0) % Seg Neutrophils # 6.0 (1.8-7.7) K/mm3 Sodium 136 L (137-145) mmol/L Potassium 3.7 (3.6-5.0) mmol/L Chloride 101.5 (98-107) mmol/L Carbon Dioxide 21 L (22-30) mmol/L Anion Gap 17 mmol/L BUN 8 (7-17) mg/dL Creatinine 0.8 (0.6-1.2) mg/dL Estimated GFR > 60 ml/min BUN/Creatinine Ratio 10 % Glucose 80 (65-100) mg/dL Calcium 9.2 (8.4-10.2) mg/dL Total Bilirubin < 0.20 (0.1-1.2) mg/dL AST 19 (5-40) units/L ALT 10 (7-56) units/L Alkaline Phosphatase 103 (35-129) units/L Total Protein 7.9 (6.3-8.2) g/dL Albumin 4.2 (3.9-5) g/dL Albumin/Globulin Ratio 1.1 % - Medical Decision Making This patient presents with a few days of a frontal headache, nasal congestion, facial/sinus pressure, and sore throat. On examination she does not have any fo jovanna, motor or sensory deficits and her cranial nerves are intact. There is reproducible tenderness to palpation along the facial sinuses. She has boggy nasal mucosa and audible nasal congestion. Patient's labs have been unremarkable including CBC and metabolic panel. She was given a [place] to help with her facial and head pain with some improvement. The patient's symptoms appear most consistent with a sinus headache and sinus pressure, probably from environmental allergies. She does not have any neurological deficits. For these reasons I did not feel that the patient required CT imaging of the head. Vital signs reassuring throughout her ED course including being afebrile. She will be discharged home on Flonase, pseudoephedrine and Claritin. She has been instructed to follow-up with a PCP and return to the ER with any worsening of her symptoms or with any acute distress. Critical Care Time: No Critical care attestation.: If time is entered above; I have spent that time in minutes in the direct care of this critically ill patient, excluding procedure time. ED Disposition Clinical Impression: Sinus headache, Sinus congestion Disposition: DC-01 TO HOME OR SELFCARE Is pt being admited?: No Condition: Stable Instructions: Allergies, Adult, [id number], Sinus Headache Additional Instructions: Please follow-up with a primary care physician in the next few days. Return to the emergency department with any worsening of your symptoms, new or concerning symptoms not addressed during this current emergency department visit, or with any acute distress. Prescriptions: Loratadine [Claritin] 10 mg PO QDAY #15 tablet Fluticasone [Flonase] 1 spray NS QDAY #1 bottle Pseudoephedrine ER [Sudafed 12 Hr] 120 mg PO BID #10 tablet.er Referrals: PRIMARY CARE, [Referring] - 2-3 Days Time of Disposition: 05:02
[2020-09-01 05:19] VITALS: BP 136/82
== END 2020-09-01 05:15 | disposition home or self-care (01) ==
LOC: ED 21:15
DX: R51.9 Headache, unspecified (principal); R09.81 Nasal congestion; I10 Essential (primary) hypertension; J45.909 Unspecified asthma, uncomplicated; F17.200 Nicotine dependence, unspecified, uncomplicated; Z79.899 Other long term (current) drug therapy; Z88.0 Allergy status to penicillin; Z88.8 Allergy status to other drugs, medicaments and biological substances
CPT/HCPCS: 36415; 80053; 85025; 99283; J8540